=== PATIENT | female | born 2000 | race Caucasian/White ===

== ENCOUNTER 2025-06-21 11:56 | Emergency (ER) | payer MEDICAID, SELFPAY ==
[2025-06-21 11:57] VITALS: BP 122/68; PULSE 71; RESP 18; TEMP 36.9; O2SAT 99; BMI 24.5
--- NOTE | 2025-06-21 13:15 | EX.ED.VIS.PS ---
HPI HPI - Psych History of Present Illness Chief Complaint: Mental Health Narrative Narrative: 24-year-old female past medical history of depression and anxiety presents with her mother because she has been out of her medication. She is supposed to be taking Effexor, total of 187.5 mg every morning. She moved here a few months ago from [facility] and is trying to establish with a psychiatrist. She states that 3 days ago she ran out of the 37.5 mg Effexor so she has only been taking 150 mg. She feels as if she is going through some withdrawal symptoms because she is not taking the right amount that she has been on previously. She denies any suicidal ideation but states that she is slightly more depressed. She is here mainly for medication refill. She states that the pharmacy will not refill any medications or prepare her medications because a psychiatrist/physician is not called them in. [facility] Medical History Borderline personality disorder Depression Home Medications ?Medication ?Instructions ?Recorded ?Last Taken ?Type venlafaxine 150 mg 150 mg PO DAILY #30 caps 06/21/25 Unknown Rx capsule,extended release 24 hr (Effexor XR) venlafaxine 37.5 mg 37.5 mg PO DAILY #60 caps 06/21/25 Unknown Rx capsule,extended release 24 hr (Effexor XR) Allergy/AdvReac Type Severity Reaction Status Date / Time No Known Allergies Allergy Verified 06/21/25 12:02 Surgical History Hx of tonsillectomy Social History Smoking Status: Never smoker ROS ROS ED ROS Narrative Review of systems is positive for lightheadedness. No fevers or chills, no nausea or vomiting. No suicidal ideation, no hallucinations. EXAM Physical Exam Narrative Exam Narrative: Afebrile. Vital signs noted. Nontoxic-appearing. Cardiovascular examination reveals regular rate and rhythm. Lungs are clear to auscultation bilaterally. Abdomen is soft and nontender with positive bowel sounds. No guarding or rebound. Neurological examination nonfocal, nonlateralizing. Psychiatric examination does show flat to depressed affect but no suicidal ideation, no internal stimulation or active hallucinations. Const Vital Signs: 06/21/25 11:57 06/21/25 12:07 Temperature 98.4 F Temperature Source Oral Pulse Rate 71 Respiratory Rate 18 Respiratory Effort Normal Non-Labored Respiratory Pattern Normal Blood Pressure 122/68 H Blood Pressure Mean 86 Pulse Ox 99 Oxygen Delivery Method Room Air MDM MDM MDM Narrative Medical decision making narrative: I do not feel that differential diagnosis is applicable. She is here for refill mainly of the 37.5 mg Effexor. Her mother has her medication bottles. She does have approximately 20 to 30 tablets remaining of the 150 mg of Effexor. I do not feel that she requires emergent psychiatric hold or transfer to a psychiatric facility as she is not meeting any criteria. She is not suicidal, or unstable. I discussed the patient with the social service coordinator. They have arranged for a follow-up appointment with psychiatry in approximately 45 days. I did write her prescription for 30 days of the Effexor 150 mg to take orally once a day in the morning. I wrote her prescription for the 37.5 mg of Effexor to take in combination with the 150 mg, #60 which should get her through to her appointment where all medications can be refilled by psychiatry. Her mother is comfortable taking her home. Disposition is discharged home in stable condition. History & Record Review Discussion w/independent historian: Patient and Family Management Discussion w/another healthcare provider: social worker assistant/Case management (Social work) Discharge Plan Triage Chief Complaint: Mental Health Other Complaint: Med Refill ED Provider: Dylan Chang Dx/Rx/DC Orders Clinical Impression: Depression, Medication refill Instructions: Medication Refill, ED Depression Prescriptions: New venlafaxine [Effexor XR] 150 mg capsule,extended release 24hr 150 mg PO DAILY Qty: 30 0RF venlafaxine [Effexor XR] 37.5 mg capsule,extended release 24hr 37.5 mg PO DAILY Qty: 60 0RF Primary Care Provider: Care Physician,No Primary Referrals: Care Physician,No Primary [Primary Care Provider, Medical] Activity Restrictions/Additional Instructions: Follow-up with psychiatry as scheduled by social work. Continue your medications as previously directed. You are to take a total of 187.5 mg of your Effexor every morning. Print Language: Malawian Disposition Disposition: Home, Self Care
[2025-06-21 13:31] VITALS: BP 118/64; PULSE 70; RESP 18; TEMP 36.9; O2SAT 99
--- NOTE | 2025-06-21 14:03 | CM.ED ---
Social Work Patient told SW that she had recently moved back to [place] from [place] mid summer. Since then, she has not been able to establish with a psychiatrist due to having to get her insurance corrected. Patient now has active [facility] but has ran out of her prescriptions. Patient denies any other mental health needs, denies suicidal or homicidal ideations or other psychotic symptoms. Patient declines need for counseling services and requested assistance getting a psychiatry appointment. [facility] was contacted, however stated if patient is new and has not been hospitalized in the last 30 days, they are currently on a waiting list and not scheduling new appointments. [facility] was contacted and was able to get patient an appointment July 28 at 2:30. Patient made aware of same and ED physician was able to write scripts to get patient to her appointment date. Patient was also given a list of local psychiatrists should she want to change providers at any time. No further needs identified. Rosemary Whitfield, SUPERVISOR [employer], EXECUTIVE ADMINISTRATIVE ASSISTANT
== END 2025-06-21 13:33 | disposition home or self-care (01) ==
PROVIDERS: Emergency Provider Emergency Medicine; Visit Provider Emergency Medicine
DX: F32.A Depression, unspecified (principal); Z76.0 Encounter for issue of repeat prescription; F41.9 Anxiety disorder, unspecified; Z79.899 Other long term (current) drug therapy
CPT/HCPCS: 99283

== ENCOUNTER 2025-08-20 07:30 | Emergency (ER) | payer MEDICAID, SELFPAY ==
[2025-08-20 07:31] VITALS: BP 109/63; PULSE 86; RESP 16; TEMP 36.8; O2SAT 99; BMI 22.6
--- NOTE | 2025-08-20 07:51 | EDS_ITS ---
HPI HPI - GI History of Present Illness Chief Complaint: Abd Pain Informant: patient Narrative Narrative: Patient is a 24-year-old female with no significant medical history presenting with acute onset of right lower quadrant abdominal pain and nausea. - Pain began last night during sleep, waking her up about an hour ago. - Describes pain as worse with palpation and lying on her right side. - Initially localized to the center, but now primarily in the right lower quadrant. - Associated with persistent nausea since yesterday; denies emesis or diarrhea. - Denies previous episodes of similar pain. - Denies back pain pain. - No history of abdominal surgeries. [facility] Medical History MDD (major depressive disorder) Borderline personality disorder Depression Home Medications ?Medication ?Instructions ?Recorded ?Last Taken ?Type venlafaxine 150 mg 150 mg PO DAILY #30 caps 04/0808/19/25 Rx capsule,extended release 24 hr (Effexor XR) venlafaxine 37.5 mg 37.5 mg PO DAILY #60 caps 08/19/25 Rx capsule,extended release 24 hr (Effexor XR) mirtazapine 15 mg tablet 15 mg PO QHS 07/28/25 History ondansetron 8 mg disintegrating 8 mg PO Q8H PRN nausea and 08/20/25 Unknown Rx tablet vomiting #10 tabs tramadol 50 mg tablet 50 mg PO Q6H PRN pain 2 days #8 08/20/25 Unknown Rx tabs Allergy/AdvReac Type Severity Reaction Status Date / Time No Known Allergies Allergy Verified 08/20/25 07:33 Family History (Updated 07/28/25 @ 14:36 by Aileen Jacinto) Other ADHD Anxiety CVA (cerebral vascular accident) Colon cancer Depression Diabetes Surgical History Hx of tonsillectomy Social History Smoking Status: Never smoker alcohol intake: current alcohol intake frequency: holidays/special occasions only substance use type: does not use ROS ROS ED Constitutional Constitutional ED: Denies chills or fever(s) Eyes Eyes: Denies change in vision or diplopia ENT ENT ED: Denies rhinorrhea or sore throat Cardiovascular Cardiovascular: Denies chest pain or palpitations Respiratory/Chest Respiratory/Chest: Denies cough or dyspnea Gastrointestinal Gastrointestinal: Reports abdominal pain and nausea; Denies diarrhea or vomiting Genitourinary Genitourinary ED: Denies dysuria or hematuria Musculoskeletal Musculoskeletal: Denies back pain or neck pain Integumentary Denies abscess or rash Neurologic Neurologic: Denies headache(s), paresthesias or weakness Psychiatric Psychiatric: Denies anxiety or suicidal thoughts EXAM Physical Exam Const Vital Signs: 08/20/25 07:31 08/20/25 10:01 08/20/25 12:08 Temperature 98.3 F Temperature Source Oral Pulse Rate 86 61 57 L Respiratory Rate 16 15 Blood Pressure 109/63 103/60 98/57 L Blood Pressure Mean 78 74 70 Pulse Ox 99 100 100 Oxygen Delivery Method Room Air Room Air Room Air Positive well nourished and well developed General Appearance ED: well developed and NAD HEENT Reports moist mucous membranes normocephalic and atraumatic Eyes PERRL and EOMs intact bilaterally Neck full ROM and supple Resp normal respiratory effort and clear to auscultation bilaterally Cardio regular rate, regular rhythm and no murmurs GI non-distended GI Narrative: Tender in right lower quadrant, focused at McBurney's point. No guarding or rebound tenderness. Negative Rovsing, obturator, psoas signs. No right upper quadrant or other abdominal tenderness. Auscultation: normoactive bowel sounds Palpation: soft Back/Spine no CVA tenderness General Back: other FROM Extremity normal to inspection General Extremety ED: Negative for edema, pulses abnormal or tenderness General Extremity: Negative for edema or pulses abnormal Neuro oriented x3, CN's II-XII intact bilaterally and no sensory deficits noted Sensorium / Orientation: awake and alert Motor Exam: strength 5/5 throughout Skin no rashes or lesions noted and no wounds MDM MDM MDM Narrative Medical decision making narrative: Assessment: The patient is a 24-year-old female presenting for acute right lower quadrant abdominal pain and nausea that awakened her from sleep. Pain initially felt rosas-umbilical then localized to the right lower quadrant. CT abdomen/pelvis with oral and IV contrast shows normal appendix without inflammatory changes but demonstrates pyen-dr-ugeetqbo free fluid in the right pelvis. test is negative, excluding ectopic . Transvaginal ultrasound shows normal blood flow to both ovaries, an enlarged right ovary with a 1.9 cm dominant follicle, and similar free fluid; no mass or torsion identified. Given normal appendix, reassuring Doppler flow, and pelvic free fluid, ruptured right ovarian cyst is most likely; appendicitis, ovarian torsion, and hemorrhagic cyst were considered but are less likely. Plan: - IV fluids administered - Morphine given for initial pain control, followed by Toradol when morphine effect waned - Zofran administered for nausea - Oral contrast ingested for delayed CT imaging - Discharged home in stable condition with prescription analgesics PRN - Outpatient [employer] follow-up arranged with Dr. James ([facility]) for continued care Diagnostics: - Serum test negative - CBC: no leukocytosis or left shift - CT abdomen/pelvis with oral and IV contrast interpreted by Brian tan: normal appendix; no bowel inflammation; aqww-ub-yhddfxsf free fluid in right pelvis - Transvaginal pelvic ultrasound interpreted by Brian tan: right ovary 4.1 ? 4.5 ? 1.8 cm with 1.9 cm dominant follicle; normal arterial and venous flow to both ovaries; large amount of free fluid around right ovary; no mass, hemorrhagic cyst, or torsion Reevaluations: - Patient re-examined after analgesia: comfortable, non-toxic, hemodynamically stable Portions of this note were generated using voice recognition software ([employer] Dictation). I have reviewed the contents and every effort has been made to ensure accuracy; however, inadvertent errors in grammar, spelling, punctuation, or word choice may occur, that were not noted before signing the document and should not alter the intended clinical meaning. Lab Data Attestation: I reviewed the patient's lab results. Labs: Laboratory Results - last 24 hr 08/20/25 08/20/25 08:20 09:38 WBC 6.7 RBC 4.41 Hgb 13.2 Hct 40.4 MCV 91.6 MCH 29.9 MCHC 32.7 RDW Std Deviation 40.5 RDW Coeff of Chint[place] 12.0 Plt Count 222 MPV 9.7 Immature Gran % (Auto) 0.300 Neut % (Auto) 65.4 Lymph % (Auto) 24.0 [place] % (Auto) 7.9 Eos % (Auto) 1.8 Baso % (Auto) 0.6 Absolute Neuts (auto) 4.4 Absolute Lymphs (auto) 1.62 Nucleated RBC % 0 Sodium 139 Potassium 3.7 Chloride 104 Carbon Dioxide 24.9 Anion Gap 10 BUN 11 Creatinine 0.75 Estim Creat Clear Calc 120.88 Est GFR (MDRD) Non-Af 113 BUN/Creatinine Ratio 13.9 Glucose 94 Calcium 9.1 Serum , Qual NEGATIVE Urine Color Yellow Urine Clarity Clear Urine pH 6.5 Ur Specific [place] 1.010 Urine Protein Negative Urine Glucose (UA) Normal Urine Ketones 15 H Urine Occult Blood Negative Urine Nitrite Negative Urine Bilirubin Negative Urine Urobilinogen Normal Ur Leukocyte Esterase Negative Urine RBC 0 SEEN Urine WBC 0 SEEN Ur Squamous Epith Cells 0-5 SEEN Urine Bacteria 0 SEEN Urine Mucus 0 SEEN Radiography Diagnostic Testing: Clinical Impression(s) from Imaging Studies Abdomen/Pelvis CT 08/20/25 09:45 IMPRESSION: 1. No signs of appendicitis, bowel inflammation, perforation or obstruction. 2. Mild-moderate right periadnexal and pelvic fluid. Poorly visualized right ovary due to adjacent fluid. A pelvic ultrasound is recommended to further evaluate. Reading Location: [facility] Transvaginal US 08/20/25 10:17 IMPRESSION: 1. Mild-moderate free fluid in the pelvis, of unclear etiology, more than expected for physiologic fluid. 2. Enlarged right ovary (17.6 mL), with no evidence of cyst, mass or torsion. Reading Location: [facility] Discharge Plan Triage Chief Complaint: Abd Pain ED Provider: Brian Eubanks Dx/Rx/DC Orders Clinical Impression: Rupture of cyst of right ovary, Abdominal pain, RLQ Instructions: ED Ovarian Cyst Prescriptions: New tramadol 50 mg tablet 50 mg PO Q6H PRN (Reason: pain) 2 Days Qty: 8 0RF ondansetron 8 mg tablet,disintegrating 8 mg PO Q8H PRN (Reason: nausea and vomiting) Qty: 10 0RF No Action mirtazapine 15 mg tablet 15 mg PO QHS venlafaxine [Effexor XR] 150 mg capsule,extended release 24hr 150 mg PO DAILY Qty: 30 0RF venlafaxine [Effexor XR] 37.5 mg capsule,extended release 24hr 37.5 mg PO DAILY Qty: 60 0RF Primary Care Provider: Care Physician,No Primary Referrals: Tiffany James DO [Med Staff - Active Staff, Obstetrics-Gynecology (OBGYN)] - As soon as possible Activity Restrictions/Additional Instructions: - Take your prescribed analgesic medication as needed to manage your pain. May add ibuprofen to this as needed. - Contact Dr. James?s office at [facility] to schedule an outpatient gynecology appointment with first available provider. Print Language: Amharic Disposition Disposition: Home, Self Care
--- OUTSIDE RECORDS SUMMARY | 2025-08-20 08:14 | XMS RPT_ITS | CCD ---
Author Organization [facility] Care Team Providers Care Bookstore Manager Name Role Phone SELF, SELF Referring Unavailable Town Doctor, Out of Primary Care Unavailable Solis Weaver Attending Unavailable Care Physician, No Primary Primary Care Patva Dylan Syed Attending Unavailable Problems Problem Classification Problem Date Documented Da te Episodic/Chronic Mood disorders (1 source) Mood disorders; Translations: [Depression, unspecified] Onset: 06-29-2025 Results Test Name Value Interpretation Reference Range Facil ity Emergency Department Summary on 06-21-2025 Emergency Department Summary [facility] Medical Records Department [address] [place] [address] Emergency Department Summary 06/21/25 MR#: [id number] Acct: [id number] Name: KAREN OCAMPO Rep #: [id number] : 2000 24 From: Dylan Chang MD PCP: Care Physician,No Primary Status:REG ER Location: ED HPI HPI - Psych History of Present Illness Chief Complaint: Mental Health Narrative Narrative: 24-year-old female past medical history of depression and anxiety presents with her mother because she has been out of her medication. She is supposed to be taking Effexor, total of 187.5 mg every morning. She moved here a few months ago from [facility] and is trying to establish with a psychiatrist. She states that 3 days ago she ran out of the 37.5 mg Effexor so she has only been taking 150 mg. She feels as if she is going through some withdrawal symptoms because she is not taking the right amount that she has been on previously. She denies any suicidal ideation but states that she is slightly more depressed. She is here mainly for medication refill. She states that the pharmacy will not refill any medications or prepare her medications because a psychiatrist/physicia n is not called them in. [facility] Medical History Borderline personality disorder Depression Home Medications ???Medication ???Instructions ???Recorded ???Last Taken ???Type venlafaxine 150 mg 150 mg PO DAILY #30 caps 06/21/25 Unknown Rx capsule,extended release 24 hr (Effexor XR) venlafaxine 37.5 mg 37.5 mg PO DAILY #60 caps 06/21/25 Unknown Rx capsule,extended release 24 hr (Effexor XR) Allergy/AdvReac Type Severity Reaction Status Date / Time No Known Allergies Allergy Verified 06/21/25 12:02 Surgical History Hx of tonsillectomy Social History Smoking Status: Never smoker ROS ROS ED ROS Narrative Review of systems is positive for lightheadedness. No fevers or chills, no nausea or vomiting. No suicidal ideation, no hallucinations. EXAM Physical Exam Narrative Exam Narrative: Afebrile. Vital signs noted. Nontoxic-appearing. Cardiovascular examination reveals regular rate and rhythm. Lungs are clear to auscultation bilaterally. Abdomen is soft and nontender with positive bowel sounds. No guarding or rebound. Neurological examination nonfocal, nonlateralizing. Psychiatric examination does show flat to depressed affect but no suicidal ideation, no internal stimulation or active hallucinations. Const Vital Signs: 06/21/25 11:57 06/21/25 12:07 Temperature 98.4 F Temperature Source Oral Pulse Rate 71 Respiratory Rate 18 Respiratory Effort Normal Non-Labored Respiratory Pattern Normal Blood Pressure 122/68 H Blood Pressure Mean 86 Pulse Ox 99 Oxygen Delivery Method Room Air MDM MDM MDM Narrative Medical decision making narrative: I do not feel that differential diagnosis is applicable. She is here for refill mainly of the 37.5 mg Effexor. Her mother has her medication bottles. She does have approximately 20 to 30 tablets remaining of the 150 mg of Effexor. I do not feel that she requires emergent psychiatric hold or transfer to a psychiatric facility as she is not meeting any criteria. She is not suicidal, or unstable. I discussed the patient with the social studies department chair. They have arranged for a follow-up appointment with psychiatry in approximately 45 days. I did write her prescription for 30 days of the Effexor 150 mg to take orally once a day in the morning. I wrote her prescription for the 37.5 mg of Effexor to take in combination with the 150 mg, #60 which should get her through to her appointment where all medications can be refilled by psychiatry. Her mother is comfortable taking her home. Disposition is discharged home in stable condition. History Record Review Discussion w/independent historian: Patient and Family Management Discussion w/another healthcare provider: dry chain worker/Case management (Social work) Discharge Plan Triage Chief Complaint: Mental Health Other Complaint: Med Refill ED Provider: Dylan Chang Dx/Rx/DC Orders Clinical Impression: Depression, Medication refill Instructions: Medication Refill, ED Depression Prescriptions: New venlafaxine [Effexor XR] 150 mg capsule,extended release 24hr 150 mg PO DAILY Qty: 30 0RF venlafaxine [Effexor XR] 37.5 mg capsule,extended release 24hr 37.5 mg PO DAILY Qty: 60 0RF Primary Care Provider: Care Physician,No Primary Referrals: Care Physician,No Primary [Primary Care Provider, Medical] Activity Restrictions/Addition al Instructions: Follow-up with psychiatry as scheduled by soci (more content not included)... Normal [facility] Encounters Encounter Date Encounter Type Care Provider Facility Start: 07-28-2025 ambulatory Out of Town Doctor [place] lity:[facility] Start: 06-21-2025 End: 06-21-2025 Emergency department patient visit No Primary Care Physician Facility:[facility] Start: 06-07-2025 ambulatory SELF SELF Facility:[facility] Payers Date Payer Category Payer Self-pay 2025 Unknown [id number] 2000 Unknown [id number] Unknown [id number] Unknown [id number] Summary Purpose Family History No Family History Records FoundNo Family History Records Found Advance Directives No Advanced Directives Records FoundNo Advanced Directives Records Found Additional Source Comments INFORMATION SOURCE (unrecogn ized section and content) DATE CREATED AUTHOR 06/30/2025 [facility] DATE CREATED AUTHOR AUTHOR'S ORGANESTELLA ATION 07/01/2025 [facility] FOR RECORDS PERTAINING TO PATIENTS WHO ARE OR HAVE BEEN ENROLLED IN A CHEMICAL DEPENDENCY/SUBSTANCEABUSE PROGRAM, SOME INFORMATION MAY BE OMITTED. This clinical summary was aggregated from multiple sources. Caution should be exercised in using it in the provision of clinical care. This summary normalizes information from multiple sources, and as a consequence, information in this document may materially change the coding, format and clinical context of patient data. In addition, data may be omitted in some cases. CLINICAL DECISIONS SHOULD BE BASED ON THE PRIMARY CLINICAL RECORDS. [employer] provides no warranty or guarantee of the accuracy or completeness of information in this document.
[2025-08-20 08:26] LABS: Hematocrit 40.4 % (37-47); Hemoglobin 13.2 g/dL (12.0-15.0); Immature Granulocytes Count 0.020 X10^3/uL (0.0-0.0); Mean Corp Hgb Conc 32.7 g/dL (32-36); Mean Corpuscular Volume 91.6 fL (81-99); Mean Platelet Vol. 9.7 fl (6.2-12.0); NRBC Flagged by Analyzer 0 % (0-5); Platelet Count 222 K/mm3 (150-450); RBC Distribution Width CV 12.0 % (11.6-14.6); RBC Distribution Width SD 40.5 fl (35.1-43.9); Red Blood Count 4.41 M/mm3 (4.2-5.4); White Blood Count 6.7 K/mm3 (4.4-11.0)
[2025-08-20] MEDS: 0.9% Normal Saline (1000mL) 1,000 ML 125 ML IV (08:38)
[2025-08-20 08:44] LABS: Internal QC Validated? YES +Cl - CLEAR BKGD; Pregnancy, Serum, hCG Quali. NEGATIVE Negative
[2025-08-20 08:58] LABS: Anion Gap 10 (5-15); BUN 11 mg/dL (4-19); BUN/Creat Ratio 13.9 RATIO (10-20); Calcium,Total 9.1 mg/dL (7.6-11.0); Carbon Dioxide 24.9 mmol/L (21.0-32.0); Chloride 104 mmol/L (98-108); Estimated Creatinine Clearance 120.88 ml/min (50-250); Glucose 94 mg/dL (70-99); Potassium 3.7 mmol/L (3.3-5.1)
[2025-08-20 09:43] LABS: Mucous, Urine 0 SEEN /hpf (<or=2+); Red Blood Cells-Urine 0 SEEN /hpf (0-5)
--- NOTE | 2025-08-20 09:45 | CT_ITS ---
PROCEDURE: ABDOMEN/PELVIS WITH CONTRAST 08/20/2025 REASON FOR EXAM: Right lower quadrant pain, woke her up during the night. Nausea. TECHNIQUE: Procedure Code: [id number] Modality: CT Procedure: ABDOMEN/PELVIS WITH CONTRAST Coronal and Sagittal reconstruction series were provided. CONTRAST: Isovue 370 VOLUME: 100 mL One or more dose reduction techniques were used (e.g., Automated exposure control, adjustment of the mA and/or kV according to patient size, use of iterative reconstruction technique. RADIATION DOSE SUMMARY: CTDlvol: 9.97, 10.90 mGy DLP: 580 mGycm COMPARISON: None. FINDINGS: LUNG BASES: No basilar airspace consolidation or pleural effusion. LIVER: Unremarkable. GALLBLADDER: Unremarkable. No calcified stone. BILE DUCTS: No ductal dilation. PANCREAS: Unremarkable. SPLEEN: Unremarkable. ADRENAL GLANDS: Unremarkable. KIDNEYS: Unremarkable. The kidneys enhance symmetrically. No hydronephrosis or hydroureter. STOMACH AND BOWEL: Oral contrast has progressed to the ileocecal valve. No obstruction or perforation. No wall thickening. No CT evidence of colitis or acute diverticulitis. APPENDIX: Normal-appearing appendix. No CT evidence for appendicitis. RETRO/PERITONEUM: Mild to moderate right periadnexal and cul-de-sac fluid. No free air or focal fluid collections. LYMPH NODES: No lymphadenopathy. PELVIC ORGANS: The right ovary is not well evaluated due to adjacent fluid. Unremarkable urinary bladder, uterus and left ovary. VASCULATURE: No aortic aneurysm. ABDOMINAL WALL AND SOFT TISSUES: Unremarkable. BONES: No fracture or suspicious osseous abnormality. CT/Abdomen/Pelvis WITH Contrast IMPRESSION: 1. No signs of appendicitis, bowel inflammation, perforation or obstruction. 2. Mild-moderate right periadnexal and pelvic fluid. Poorly visualized right ovary due to adjacent fluid. A pelvic ultrasound is recommended to further evaluate. Reading Location: [id number]
[2025-08-20 09:49] LABS: Color, Urine Yellow (Yellow); Glucose, Dipstick Normal (Normal); Ketone-Dipstick 15 mg/dl (Negative); Leukocyte Esterase-Dipstick Negative /ul (Negative); Nitrite-Dipstick Negative (Negative); Occult Blood-Urine Negative /ul (Negative); Protein-Dipstick Negative (Negative); Specific Gravity, Urine 1.010 (1.002-1.030); Urine Bilirubin Dipstick Negative (Negative)
[2025-08-20 09:54] LABS: Squamous Epithelial Cells - UA 0-5 SEEN /hpf (5-10)
[2025-08-20 10:01] VITALS: BP 103/60; PULSE 61; RESP 15; O2SAT 100
--- NOTE | 2025-08-20 10:17 | US_ITS ---
PROCEDURE: TRANSVAGINAL NON- 08/20/2025 REASON FOR EXAM: RLQ PAIN. LMP: No recent - Nexplanon. TECHNIQUE: Procedure Code: USTVAG Modality: US Procedure: TRANSVAGINAL NON- COMPARISON: CT Abdomen and Pelvis w/Contrast, 08/20/2025 FINDINGS: ENDOMETRIUM: Homogeneous. Normal thickness of 3.0 mm. UTERUS: Anteverted. Normal size and contour measuring 7.7 x 4.8 x 3.4 cm. No fibroid detected. CERVIX: Normal size and contour. RIGHT OVARY: Enlarged measuring 4.1 x 4.5 x 1.8 cm (volume 17.6 mL). Normal follicles with a 1.9 cm dominant follicle. Normal blood flow. No adnexal mass. LEFT OVARY: Normal size and appearance measuring 4.8 x 2.4 x 1.5 cm (volume 9.0 mL). Normal follicles. Normal blood flow. No adnexal mass. FREE FLUID: Lhan-in-ypqycrar free fluid. US/Transvaginal Non- IMPRESSION: 1. Mild-moderate free fluid in the pelvis, of unclear etiology, more than expe cted for physiologic fluid. 2. Enlarged right ovary (17.6 mL), with no evidence of cyst, mass or torsion. Reading Location: [id number]
[2025-08-20 12:08] VITALS: BP 98/57; PULSE 57; O2SAT 100
[2025-08-20] MEDS: Ketorolac 30 MG/ML Syringe IV (12:11)
[2025-08-20 13:33] VITALS: BP 103/60; PULSE 58; RESP 14; TEMP 36.6; O2SAT 99
== END 2025-08-20 13:37 | disposition home or self-care (01) ==
PROVIDERS: Emergency Provider Emergency Medicine; Visit Provider Emergency Medicine
DX: N83.201 Unspecified ovarian cyst, right side (principal); R10.31 Right lower quadrant pain; R11.0 Nausea; F32.9 Major depressive disorder, single episode, unspecified; Z79.899 Other long term (current) drug therapy
CPT/HCPCS: 74177; 76830; 80048; 81001; 84703; 85025; 96361; 96374; 96375; 99282; Q9967; A4216; J2405